=== PATIENT | male | born 1975 | race Caucasian/White ===

== ENCOUNTER 2024-01-14 19:35 | Emergency (ER) | payer SELFPAY ==
[2024-01-14] VITALS (13 sets, daily range): BP systolic 121–135; BP diastolic 68–88; PULSE 62–93; TEMP 36.6; O2SAT 93–99; BMI 35.5
--- NOTE | 2024-01-14 19:52 | PC.NURSE ---
right shoulder appears dislocated, ice in place and working on IV
--- NOTE | 2024-01-14 19:53 | XR_ITS ---
[address] [address] Patient Name: ANKUSH GARCES MRN: [id number] date: 1975 Sex: M Assigned Patient Location: ER Current Patient Location: ER Accession/Order Number: [id number] Exam Date: 01/14/2024 20:06 Report Date: 01/14/2024 21:11 At the request of: TAMARA GAMEZ Procedure: XR shoulder RT min 2V EXAM: XR shoulder RT min 2V HISTORY: pain COMPARISON: None. TECHNIQUE: AP, Y-view right shoulder. FINDINGS: Anterior subcoracoid dislocation. No fracture of the humerus or glenoid, no displaced fragment. Soft tissues unremarkable. Visualized right clavicle ribs and lung unremarkable. Minimal spurring at the AC joint. XR/XR shoulder RT min 2V IMPRESSION: Anterior subcoracoid dislocation without fracture. Electronically authenticated by: SONIA MCKAY Date: 01/14/2024 21:11
--- NOTE | 2024-01-14 20:23 | ED_ITS ---
HPI HPI - Extremity Injury (Upper) General Chief Complaint: Extremity Injury, Upper Stated Complaint: RT SHOULD PAIN/INJURY Time Seen by Provider: 01/14/24 20:17 Source: patient Mode of arrival: walk-in History of Present Illness HPI narrative: patient was wrestling and dislocated his right shoulder just [employer]. Denies numbness of the RUE. Denies other injury or complaint. Related Data Home Medications ?Medication ?Instructions ?Recorded ?Confirmed No Known Home Medications 01/14/24 01/14/24 Allergies Allergy/AdvReac Type Severity Reaction Status Date / Time No Known Drug Allergies Allergy Verified 01/14/24 19:47 Opioid HPI Opioid Management Most Recent Pain and Opioid Data: No Data to Display Review of Systems ROS Status of ROS 10 or more systems reviewed and unremark able except as noted in history and below Exam Constitutional Vital Signs, click to edit/add: Last Vital Signs Temp 97.9 F 01/14/24 19:43 Pulse 84 01/14/24 21:31 Resp 28 H 01/14/24 20:55 BP 134/72 01/14/24 21:31 Pulse Ox 97 01/14/24 21:31 O2 Del Method Room Air 01/14/24 19:43 O2 Flow Rate 2 01/14/24 20:55 Common normals: no apparent distress, average body habitus, oriented x3, no limitations, healthy appearing, alert and well nourished [facility] Common normals: normocephalic and head/scalp atraumatic Eye Common normals: EOMs intact bilaterally and conjunctivae normal Respiratory Common normals: normal respiratory effort, no retractions, no use of accessory muscles and clear to auscultation bilaterally Cardio Common normals: regular rate, regular rhythm, S1 normal heart sound and S2 normal heart sound Extremity Other: deformity right shoulder N/V RUE WNL Neuro Common normals: oriented x3, CN's II-XII intact bilaterally, moves all extremities and no focal motor deficits Psych Appearance: grossly normal Course Vital Signs Vital signs: Vital Signs Temperature 97.9 F 01/14/24 19:43 Pulse Rate 93 H 01/14/24 19:43 Respiratory Rate 18 01/14/24 19:43 Blood Pressure 135/80 01/14/24 19:43 Pulse Oximetry 96 01/14/24 19:43 Oxygen Delivery Method Room Air 01/14/24 19:43 Temperature 97.9 F 01/14/24 19:43 Pulse Rate 84 01/14/24 21:31 Respiratory Rate 28 H 01/14/24 20:55 Blood Pressure 134/72 01/14/24 21:31 Pulse Oximetry 97 01/14/24 21:31 Oxygen Delivery Method Room Air 01/14/24 19:43 Oxygen Delivery Flow Rate 2 01/14/24 20:55 MDM - Extremity Injury (Upper) MDM Narrative Medical decision making narrative: patient horsing around and wrestling and dislocated his right shoulder just [employer]. Shoulder reduced with conscious sedation. Xray demonstrates successful reduction. Patient is now awake and joking with his family . Vital signs remain very stable. Discharged home to follow up with orthopedics Discharge Plan Discharge Stand Alone Forms: Work/School Release, Portal Instructions Chief Complaint: Extremity Injury, Upper Clinical Impression: Dislocation of shoulder, right, closed Patient Disposition: Home, Self-Care Prescriptions / Home Meds: No Action No Known Home Medications Print Language: Slovenian Instructions: Shoulder Dislocation (ED), Moderate Sedation (ED) Additional Instructions: follow up with Dr Rojo or your orthopedic surgeon Referrals: Physician,Non-Staff, MD [Primary Care Provider] - 1 week Procedures ED Procedure Instructions Procedures Procedures: right shoulder anterior dislocation. Mallampati score 4. Conscious sedation with Etomidate and Ativan. Shoulder reduced without incident. Patient tolerated well. Nursing and respiratory therapy present.
[2024-01-14] MEDS: LORAZEPAM 2 MG/ML VIAL IV (20:51)
[2024-01-14] MEDS: ETOMIDATE 20 MG/10 ML VIAL IVP (20:55)
--- NOTE | 2024-01-14 21:19 | XR_ITS ---
The [address] [address] Patient Name: ANKUSH GARCES MRN: [id number] date: 1975 Sex: M Assigned Patient Location: ER Current Patient Location: Accession/Order Number: [id number] Exam Date: 01/14/2024 21:00 Report Date: 01/16/2024 03:26 At the request of: TAMARA GAMEZ Procedure: XR shoulder RT 1V EXAM: XR shoulder RT 1V HISTORY: post reduction COMPARISON: Right shoulder radiographs of the same date. TECHNIQUE: One view of the right shoulder was obtained. FINDINGS: The right humeral head now appears to be well-seated on the glenoid on this single view. There are mild degenerative changes of the right acromioclavicular joint. The coracoclavicular distance is preserved. The imaged lungs are clear. XR/XR shoulder RT 1V IMPRESSION: 1. The right humeral head now appears to be well-seated on the glenoid. Electronically authenticated by: Osito BECERRA Date: 01/16/2024 03:26
== END 2024-01-14 22:06 | disposition home or self-care (01) ==
PROVIDERS: Emergency Provider Internal Medicine
DX: S43.004A Unspecified dislocation of right shoulder joint, initial encounter (principal); Y93.83 Activity, rough housing and horseplay
CPT/HCPCS: 23650; 73020; 73030; 96374; 96375; 99152; 99284; J2060